=== PATIENT | female | born 1965 | race Caucasian/White ===

== ENCOUNTER → 2023-10-17 14:16 | Outpatient (REF) | payer OTHER, SELFPAY | LOC: WDC 14:16 | PROVIDERS: ATTENDING PHYSICIAN Physician Assistant Medical | DX: Z12.31 Encounter for screening mammogram for malignant neoplasm of breast (principal) | CPT/HCPCS: 77063; 77067 ==

== ENCOUNTER → 2024-03-29 14:23 | Outpatient (REF) | payer OTHER, SELFPAY ==
[2024-03-29 15:33] LABS: % Eosinophils 0.9 % (0-6); % Immature Granulocytes 0.3 % (0-0.5); % Lymphocytes 21.2 % (20.5-51.1); % Monocytes 6.6 % (1.7-9.3); Absolute Eosinophils 0.1 10^3/uL (0-0.7); Absolute Lymphocytes 1.6 10^3/uL (1.2-3.4); Absolute Monocytes 0.5 10^3/uL (0.1-0.6); Absolute Neutrophils 5.3 10^3/uL (1.4-6.5); Hematocrit 37.8 % (37.0-47.0); Hemoglobin 12.2 g/dL (12.0-16.0); Mean Corp Hgb Conc. 32.3 g/dL (33.0-37.0); Mean Corpuscular Hgb 28.4 pg (27.0-31.0); Mean Corpuscular Volume 88.1 fL (81.0-99.0); Mean Platelet Volume 10.4 fL (7.4-10.4); Nucleated Red Blood Cells % 0 %; Platelet Count 252 10^3/uL (130-400); Red Blood Cell Count 4.29 10^6/uL (4.20-5.40); Red Cell Dist. Width 13.2 % (11.5-14.5); White Blood Cell Count 7.4 10^3/uL (4.8-10.8)
[2024-03-29 15:58] LABS: ALT (SGPT) 61 U/L (0-35); AST (SGOT) 41 U/L (14-36); Albumin 4.4 g/dl (3.5-5.0); Alkaline Phosphatase 57 U/L (38-126); Blood Urea Nitrogen 23 mg/dl (7-17); Calcium 9.6 mg/dl (8.4-10.2); Carbon Dioxide 25 mmol/L (22-30); Chloride 104 mmol/L (98-107); Glucose 78 mg/dl (70-99); Potassium 3.7 mmol/L (3.5-5.1); Sodium 141 mmol/L (135-145); Total Bilirubin 1.2 mg/dl (0.2-1.3); Total Protein 6.8 g/dl (6.3-8.2); eGFR > 60.00
[2024-03-29 16:12] LABS: Free T3 5.54 pg/ml (2.77-5.27); Free T4 0.91 ng/dl (0.78-2.19)
[2024-03-29 16:26] LABS: TSH 0.06 uIU/ml (0.47-4.68)
[2024-03-31 17:51] LABS: Thyroid Peroxidase Ab (TPO) 221.1 IU/mL (0.0-9.0)
== END ==
LOC: REG 14:23
PROVIDERS: ATTENDING PHYSICIAN Physician Assistant Medical
DX: E03.8 Other specified hypothyroidism (principal); E06.9 Thyroiditis, unspecified
CPT/HCPCS: 36415; 80053; 84439; 84443; 84481; 85025; 86376

== ENCOUNTER → 2024-04-12 12:20 | Outpatient (REF) | payer OTHER, SELFPAY | LOC: HWRAD 12:20 | PROVIDERS: ATTENDING PHYSICIAN Physician Assistant Medical | DX: E06.9 Thyroiditis, unspecified (principal) | CPT/HCPCS: 76536 ==

== ENCOUNTER → 2024-05-07 11:16 | Outpatient (REF) | payer OTHER, SELFPAY ==
[2024-05-07 13:02] LABS: Free T3 2.55 pg/ml (2.77-5.27); Free T4 0.64 ng/dl (0.78-2.19)
== END ==
LOC: REG 11:16
PROVIDERS: ATTENDING PHYSICIAN Physician Assistant Medical
DX: E03.8 Other specified hypothyroidism (principal); E06.9 Thyroiditis, unspecified
CPT/HCPCS: 36415; 84439; 84443; 84481

== ENCOUNTER → 2024-10-18 14:13 | Outpatient (REF) | payer OTHER, SELFPAY | LOC: WDC 14:13 | PROVIDERS: ATTENDING PHYSICIAN Physician Assistant Medical | DX: Z12.31 Encounter for screening mammogram for malignant neoplasm of breast (principal) | CPT/HCPCS: 77063; 77067 ==